=== PATIENT | male | born 1975 | race African-American/Black ===

== ENCOUNTER 2016-11-09 22:04 | Emergency (ER) | payer MEDICAID ==
[2016-11-09 22:13] VITALS: BMI 21.8
[2016-11-09 22:35] LABS: MPV 8.2 fL (7.4-10.4)
[2016-11-09 22:46] LABS: PARTIAL THROMB. TIME 24.7 SEC (22-35); PT-INR 1.2
[2016-11-09 22:47] LABS: BLOOD UREA NITROGEN 15 MG/DL (9-20); CALC CORRECTED 9.3 MG/DL (8.4-10.2); CALCIUM 8.6 MG/DL (8.4-10.2); CALCULATED OSMOLALITY 265 MOs/Kg (270-290); CHLORIDE 104 mEq/L (98-107); GLUCOSE 131 MG/DL (70-99); SODIUM LEVEL 136 mEq/L (137-146); TOTAL PROTEIN 6.8 G/DL (6.3-8.2)
--- NOTE | 2016-11-09 22:47 | EDPRACDOC ---
- General Information Chief Complaint: Generalized Weakness Stated Complaint: SHOB Time Seen by Provider: 11/09/16 22:37 Information Source: Patient Mode Of Arrival: Car Home Medications: Home Medications Albuterol Sulfate [Ventolin Hfa] 1 - 2 puff INH Q4H PRN 06/27/16 Aspirin [Aspirin EC] 81 mg PO DAILY 06/27/16 Atorvastatin Calcium [Lipitor] 80 mg PO DAILY 06/27/16 Buspirone HCl [Buspar] 15 mg PO TID 06/27/16 Clopidogrel Bisulfate [Plavix] 75 mg PO DAILY 06/27/16 Digoxin [Lanoxin, Digitek] 0.125 mg PO DAILY 06/27/16 Ferrous Sulfate [Feosol] 325 mg PO BID 06/27/16 Gabapentin [Neurontin] 300 mg PO TID 06/27/16 Ibuprofen [Advil] 600 mg PO Q6-8H PRN 06/27/16 Lisinopril [Prinivil] 5 mg PO DAILY 06/27/16 Metoprolol Succinate (XL) [Toprol Xl] 12.5 mg PO DAILY 06/27/16 Nitroglycerin [Nitrostat] 0.4 mg SL Q5MX3 PRN 06/27/16 Pantoprazole Sodium [Protonix] 40 mg PO BID 06/27/16 Sertraline HCl [Zoloft] 100 mg PO DAILY 06/27/16 Amitriptyline HCl [Elavil] 25 mg PO HS 11/09/16 Levothyroxine [Synthroid, Levoxyl] 150 mcg PO DAILY 11/09/16 Risperidone [Risperdal] 3 mg PO DAILY 11/09/16 Allergies/Adverse Reactions: Allergies Allergy/AdvReac Type Severity Reaction Status Date / Time Penicillins Allergy Unknown Verified 06/27/16 17:48 venom-honey bee Allergy Unknown Verified 06/27/16 18:24 [bee venom (honey bee)] - History of Present Illness Onset: 3 days HPI: WEAKNESS, CHILLS, NAUSEA, FEVER, COUGH. HEADACHE FOR 3 DAYS. POST TUSSIVE EMESIS. VOMITING. WEAKNESS. LAST NIGHT PRODUCTIVE COUGH, YELLOW SPUTUM. SOME HEMOPTYSIS SINCE ME 2014. ON ASPIRIN 81, [facility]. ED Past Medical History - History Reviewed Yes Nurses notes reviewed and agree except as marked - Patient Medical History Cardiac History: Reports: Hypertension, Congestive Heart Failure, Heart Attack, Hypercholesterolemia Respiratory History: Reports: COPD GI/ History: Reports: Gastroesophageal Reflux Psychological History: Denies: Depression Systemic History: Denies: Cancer - Social Medical History Smoking Status: Former smoker EDM Review of Systems - Review of Systems ROS Negative Except as Marked: Yes All systems reviewed and were negative except as marked Constitutional: Fever Eyes: No Symptoms Reported Respiratory: Cough, Shortness of Breath Cardiovascular: No Symptoms Reported Gastrointestinal: No Symptoms Reported, Vomiting Genitourinary: No Symptoms Reported Neurological: Headache - Physical Exam Constitutional: Alert (Awake), No apparent distress Oriented to: Time, Person, Place Last recorded Vital Signs: Last Vital Signs Temp 101.1 F H 11/09/16 22:11 Pulse 112 11/09/16 22:31 Resp 18 11/09/16 22:31 BP 130/83 11/09/16 22:31 Pulse Ox 96 11/09/16 22:31 Oxygen Pulse Oxygen Saturation 96 O2 Device Room Air Oxygen Flow Rate Fraction of Inspired Oxygen ( FIO2) - HEENT Head: Normal ( normocephalic) Eye Exam: Normal (PERRL, EOMI, Sclera white) Oropharynx: Normal (Pharynx:Moist without exudate,Gums-no swelling) Nose: No Symptoms Reported (septum midline) Neck: Normal (FROM, trachea at midline) - Respiratory/Cardiovascular Respiratory: Normal - CTA (BBS clear to auscultation without adventitious sounds ) Cardiovascular: Tachycardia - GI Auscultation: Normal (NABS) Palpation: Normal (Soft,No rebound or guarding, non distended) Tenderness: Non tender Hunt's Sign: Negative - Musculoskeletal Back: Normal (Non-Tender) Extremities: Normal (Normal tone, Pulses 2+ No cyanosis or edema, FROM) - Integumentary Skin: Normal, Warm, Dry Lymphatics: Normal (no adenopathy) - Neurologic Memory Impaired: Normal Motor Function: Normal (Normal tone, Pulses 2+ No cyanosis or edema, FROM) Cranial Nerve: Normal (CN II-X11 intact sensation, strength 5/5) Cerebellar: Normal Mood Description: Normal Perception: Normal - Results 11/09/16 22:21 11/09/16 22:21 WBC 16.3 xk/uL (3.8-10.8) H 11/09/16 22:21 RBC 3.17 xM/uL (4.70-6.10) L 11/09/16 22:21 Hgb 10.3 g/dL (14.0-18.0) L 11/09/16 22:21 Hct 31.8 % (42-52) L 11/09/16 22:21 MCV 100 fL (80-94) H 11/09/16 22:21 MCH 32.3 pg (27-32) H 11/09/16 22:21 MCHC 32.2 g/dl (33-36) L 11/09/16 22:21 RDW 15.9 % (11.5-14.5) H 11/09/16 22:21 Plt Count 255 xk/uL (130-400) 11/09/16 22:21 MPV 8.2 fL (7.4-10.4) 11/09/16 22:21 Lab Results 11/09/16 22:21 WBC 16.3 H RBC 3.17 L Hgb 10.3 L Hct 31.8 L MCV 100 H MCH 32.3 H MCHC 32.2 L RDW 15.9 H Plt Count 255 MPV 8.2 - Departure Yes I personally saw and evaluated the patient. Final Diagnosis: Pneumonia Qualifiers: Pneumonia type: due to unspecified organism Laterality: right Lung location: lower lobe of lung Qualified Code(s): J18.1 - Lobar pneumonia, unspecified organism Prescriptions: No Action Sertraline HCl [Zoloft] 100 mg PO DAILY Pantoprazole Sodium [Protonix] 40 mg PO BID Nitroglycerin [Nitrostat] 0.4 mg SL Q5MX3 PRN PRN Reason: Chest Pain Or Discomfort Metoprolol Succinate (XL) [Toprol Xl] 12.5 mg PO DAILY Lisinopril [Prinivil] 5 mg PO DAILY Gabapentin [Neurontin] 300 mg PO TID Ferrous Sulfate [Feosol] 325 mg PO BID Digoxin [Lanoxin, Digitek] 0.125 mg PO DAILY Clopidogrel Bisulfate [Plavix] 75 mg PO DAILY Buspirone HCl [Buspar] 15 mg PO TID Atorvastatin Calcium [Lipitor] 80 mg PO DAILY Aspirin [Aspirin EC] 81 mg PO DAILY Albuterol Sulfate [Ventolin Hfa] 1 - 2 puff INH Q4H PRN PRN Reason: SHORTNESS OF BREATH Ibuprofen [Advil] 600 mg PO Q6-8H PRN PRN Reason: Pain Amitriptyline HCl [Elavil] 25 mg PO HS Risperidone [Risperdal] 3 mg PO DAILY Levothyroxine [Synthroid, Levoxyl] 150 mcg PO DAILY
[2016-11-09 22:53] LABS: LEUKOCYTES/URINE NEG (NEGATIVE); NITRITE/URINE NEG (NEGATIVE); RBC/URINE 0-2 (0-2); URINE OCCULT BLOOD NEG (NEG/TRACE); WBC/URINE 0-2 (0-2)
[2016-11-09 23:03] LABS: SEG NEUTROPHIL 93 % (45-76)
[2016-11-09 23:04] LABS: TOTAL CELL COUNT 100
[2016-11-09] MEDS ORDERED: ALBUTEROL 6.7 GM MDI INH ONE (23:08)
[2016-11-09] MEDS ORDERED: TUSSIONEX 5 ML ORAL SYRINGE PO ONE (23:08)
[2016-11-09] MEDS ORDERED: ACETAMINOPHEN 325 MG/TAB TABLET PO ONE (23:17)
--- NOTE | 2016-11-09 23:57 | DIRPT ---
CLINICAL DATA: Productive cough, fever, shortness of breath EXAM: CHEST 2 VIEW COMPARISON: 06/27/2016 FINDINGS: Dense airspace disease at the right base. Diffuse interstitial coarsening with occasional Patria line. No cardiomegaly. Stable mediastinal contours. Coronary stent noted. Unremarkable positioning of single chamber ICD/ pacer from the left. No effusion or pneumothorax. IMPRESSION: 1. Right basilar pneumonia. 2. Diffuse interstitial coarsening, possible superimposed failure. Electronically Signed By: Shawn Avalos M.D. On: 11/09/2016 23:55
[2016-11-10] MEDS ORDERED: CEFDINIR 300 MG CAP PO ONE (00:22)
[2016-11-10] MEDS ORDERED: AZITHROMYCIN 250 MG TAB PO ONE (00:22)
[2016-11-10 01:07] VITALS: BP 133/54; PULSE 102; TEMP 99.8
== END 2016-11-10 01:05 | disposition home or self-care (01) ==
LOC: ED 22:04
DX: J18.1 Lobar pneumonia, unspecified organism (principal)
CPT/HCPCS: 36415; 71020; 80053; 81001; 83605; 83880; 84484; 85007; 85027; 85610; 85730; 87040; 87804; 93005; 94640; 99284; J3490

== ENCOUNTER 2016-11-11 04:30 | Emergency (ER) | payer MEDICAID ==
[2016-11-11] MEDS ORDERED: OXYCODONE HCL 5 MG TABLET PO ONE (05:07)
[2016-11-11] MEDS ORDERED: LEVOFLOXACIN 750 MG TAB PO ONE (05:07)
--- NOTE | 2016-11-11 05:11 | EDPRACDOC ---
- General Information Stated Complaint: CHEST PAIN (PNEUMONIA) Time Seen by Provider: 11/11/16 05:09 Information Source: Patient Mode Of Arrival: Car Home Medications: Home Medications Albuterol Sulfate [Ventolin Hfa] 1 - 2 puff INH Q4H PRN 06/27/16 Aspirin [Aspirin EC] 81 mg PO DAILY 06/27/16 Atorvastatin Calcium [Lipitor] 80 mg PO DAILY 06/27/16 Buspirone HCl [Buspar] 15 mg PO TID 06/27/16 Clopidogrel Bisulfate [Plavix] 75 mg PO DAILY 06/27/16 Digoxin [Lanoxin, Digitek] 0.125 mg PO DAILY 06/27/16 Ferrous Sulfate [Feosol] 325 mg PO BID 06/27/16 Gabapentin [Neurontin] 300 mg PO TID 06/27/16 Ibuprofen [Advil] 600 mg PO Q6-8H PRN 06/27/16 Lisinopril [Prinivil] 5 mg PO DAILY 06/27/16 Metoprolol Succinate (XL) [Toprol Xl] 12.5 mg PO DAILY 06/27/16 Nitroglycerin [Nitrostat] 0.4 mg SL Q5MX3 PRN 06/27/16 Pantoprazole Sodium [Protonix] 40 mg PO BID 06/27/16 Sertraline HCl [Zoloft] 100 mg PO DAILY 06/27/16 Amitriptyline HCl [Elavil] 25 mg PO HS 11/09/16 Levothyroxine [Synthroid, Levoxyl] 150 mcg PO DAILY 11/09/16 Risperidone [Risperdal] 3 mg PO DAILY 11/09/16 Azithromycin 250 mg PO DAILY #4 tablet 11/10/16 Cefdinir 300 mg PO BID #14 capsule 11/10/16 Tussionex [Tussionex Oral Suspension] 10 ml PO BID PRN 7 Days 11/10/16 Allergies/Adverse Reactions: Allergies Allergy/AdvReac Type Severity Reaction Status Date / Time Penicillins Allergy Unknown Verified 06/27/16 17:48 venom-honey bee Allergy Unknown Verified 06/27/16 18:24 [bee venom (honey bee)] - History of Present Illness HPI: 5 days of cough and sharp L sided CP that only hurts when he coughs, was evaluated here yesterday, diagnosed with PNA and prescribed ABx and tessalon. He has not filled prescriptions, returns tonight due to unable to sleep with cough and pain. no syncope. no rash. no ABD pain. Symptoms: Reports: Cough Relevant History Of: Denies: COPD Shortness of Breath: Moderate Cough Frequency: Intermittent Rhinorrhea: Denies: Bloody Associated Signs and Symptoms: Denies: Sore Throat, AMS ED Past Medical History - History Reviewed Yes Nurses notes reviewed and agree except as marked - Patient Medical History Cardiac History: Reports: Hypertension, Congestive Heart Failure, Heart Attack, Hypercholesterolemia Respiratory History: Reports: COPD GI/ History: Reports: Gastroesophageal Reflux Psychological History: Denies: Depression Systemic History: Denies: Cancer - Social Medical History Smoking Status: Former smoker EDM Review of Systems - Review of Systems ROS Negative Except as Marked: Yes All systems reviewed and were negative except as marked - Physical Exam Constitutional: Alert (Awake) Oriented to: Time, Person, Place Last recorded Vital Signs: Oxygen Pulse Oxygen Saturation O2 Device Oxygen Flow Rate Fraction of Inspired Oxygen ( FIO2) - HEENT Head: Normal ( normocephalic) Eye Exam: Normal (PERRL, EOMI, Sclera white) Oropharynx: Normal (Pharynx:Moist without exudate,Gums-no swelling) Tympanic Membrane: Normal ENT EAC: Normal TMJ: Normal Nose: No Symptoms Reported (septum midline) Neck: Normal (FROM, trachea at midline) - Respiratory/Cardiovascular Respiratory: Normal - CTA (BBS clear to auscultation without adventitious sounds ). negative: Accessory Muscle Use, Rhonchi, Wheezes Cardiovascular: Normal (RRR without murmur, gallop or rub) Respiratory/Cardiovascular Comment: coughing during exam. - GI Auscultation: Normal (NABS) Palpation: Normal (Soft,No rebound or guarding, non distended) Tenderness: Non tender Hunt's Sign: Negative - Musculoskeletal Back: Normal (Non-Tender) Extremities: Normal (Normal tone, Pulses 2+ No cyanosis or edema, FROM) - Integumentary Skin: Normal, Warm, Dry Lymphatics: Normal (no adenopathy) - Neurologic Memory Impaired: Normal Motor Function: Normal (Normal tone, Pulses 2+ No cyanosis or edema, FROM) Cranial Nerve: Normal (CN II-X11 intact sensation, strength 5/5) Cerebellar: Normal Mood Description: Normal Perception: Normal - Re-evaluation Re-evaluation 1 Re-evaluation Time: 06:19 (feeling better, cough improved, plan d/c home fill Rx as prescribed and f/u PCP) - EKG EKG #1 EKG Time: 05:00 -: Yes EKG interpreted by me Rate: bpm: 106 [place]: RAD Rhythm: ST Block: None Hypertrophy: ROMINA ST: Nonsp Decision Time to Discharge: 06:20 - Departure Yes I personally saw and evaluated the patient. Disposition: Home Condition: Stable Final Diagnosis: Pneumonia Instructions: Bacterial Pneumonia (ED) Education/Counseling Given To: Patient Education/Counseling Given Regarding: Diagnosis, Follow Up Referrals: None,No Provider [Primary Care Provider] - One Week Prescriptions: No Action Sertraline HCl [Zoloft] 100 mg PO DAILY Pantoprazole Sodium [Protonix] 40 mg PO BID Nitroglycerin [Nitrostat] 0.4 mg SL Q5MX3 PRN PRN Reason: Chest Pain Or Discomfort Metoprolol Succinate (XL) [Toprol Xl] 12.5 mg PO DAILY Lisinopril [Prinivil] 5 mg PO DAILY Gabapentin [Neurontin] 300 mg PO TID Ferrous Sulfate [Feosol] 325 mg PO BID Digoxin [Lanoxin, Digitek] 0.125 mg PO DAILY Clopidogrel Bisulfate [Plavix] 75 mg PO DAILY Buspirone HCl [Buspar] 15 mg PO TID Atorvastatin Calcium [Lipitor] 80 mg PO DAILY Aspirin [Aspirin EC] 81 mg PO DAILY Albuterol Sulfate [Ventolin Hfa] 1 - 2 puff INH Q4H PRN PRN Reason: SHORTNESS OF BREATH Ibuprofen [Advil] 600 mg PO Q6-8H PRN PRN Reason: Pain Amitriptyline HCl [Elavil] 25 mg PO HS Risperidone [Risperdal] 3 mg PO DAILY Levothyroxine [Synthroid, Levoxyl] 150 mcg PO DAILY Azithromycin 250 mg PO DAILY #4 tablet Cefdinir 300 mg PO BID #14 capsule Tussionex [Tussionex Oral Suspension] 10 ml PO BID PRN 7 Days PRN Reason: Cough Additional Instructions: fill RX as prescribed and follow up with your doctor
[2016-11-11] MEDS ORDERED: ONDANSETRON HCL 4 MG/2 ML VIAL IV ONE (05:15)
[2016-11-11 05:28] VITALS: TEMP 98.6; BMI 24.7
[2016-11-11 06:31] VITALS: BP 104/75; PULSE 95
== END 2016-11-11 06:29 | disposition home or self-care (01) ==
LOC: ED 04:30
DX: J18.9 Pneumonia, unspecified organism (principal)
CPT/HCPCS: 93005; 96374; 99283; J2405; J3490